=== PATIENT | male | born 1955 | race Caucasian/White ===

== ENCOUNTER → 2018-02-27 | Outpatient (REF) ==
[~2018-02-27] MED LIST: AMITRIPTYLINE25 MG PO; NEXIUM 40MG40 MG PO; PHENERGAN 25 TA25 MG PO; PREVACID30 M1 PO; PROPRANOLOL HC120 M1 PO
[2018-02-27 17:44] LABS: THYROID STIMULATING HORMONE 0.863 uIU/mL (0.465-4.680)
== END ==
LOC: ZLAB.WCH 16:50
PROVIDERS: Physician Assistant
DX: Z01.89 Encounter for other specified special examinations (principal)

== ENCOUNTER 2018-03-02 13:24 | Day surgery (SDC) | payer OTHER ==
[2009-03-14 15:09] VITALS: BP 94/56
[~2018-03-02] VITALS: Ht 172.7 cm; Wt 79.5 kg
[2018-03-02 13:48] VITALS: BP 156/97; PULSE 114; TEMP 98
[2018-03-02] MEDS ORDERED: NEURONTIN300 MG/CAP PO (13:50)
[2018-03-02] MEDS ORDERED: NEXIUM 40MG40 MG PO (13:51)
[2018-03-02] MEDS ORDERED: INDERAL LA120 MG PO (13:51)
[2018-03-02] MEDS ORDERED: AMITRIPTYLINE H25 M1 PO (13:52)
[2018-03-02] MEDS ORDERED: NORCO 325 MG-51 TAB PO (13:52)
[2018-03-02] MEDS ORDERED: HCTZ 25MG TAB25 MG PO (13:53)
[2018-03-02] MEDS ORDERED: LEVAQUIN 5500 MG/TA1 PO (13:54)
[2018-03-02] MEDS ORDERED: PHENERGAN 25 TA25 MG PO (13:55)
[2018-03-02] MEDS ORDERED: FLOMAX 0.40.4 MG/CAP PO (13:55)
[2018-03-02 15:20] VITALS: BP 128/83; PULSE 71; TEMP 98.2
[2018-03-02 15:35] VITALS: BP 133/75; PULSE 76
[2018-03-02 15:50] VITALS: BP 121/80; PULSE 73
[2018-03-02 16:05] VITALS: BP 108/69; PULSE 73
== END 2018-03-02 16:15 | disposition home or self-care (01) ==
LOC: SDCO 13:24
DX: D12.2 Benign neoplasm of ascending colon (principal); D50.9 Iron deficiency anemia, unspecified; K59.00 Constipation, unspecified; R19.7 Diarrhea, unspecified; K21.9 Gastro-esophageal reflux disease without esophagitis; G43.909 Migraine, unspecified, not intractable, without status migrainosus; R25.1 Tremor, unspecified; Z86.010 Personal history of colon polyps
CPT/HCPCS: J2405; J2704; J7030

== ENCOUNTER 2019-02-22 07:51 | Day surgery (SDC) | payer OTHER ==
[2009-03-14 15:09] VITALS: BP 94/56
[~2019-02-22] VITALS: Ht 172.7 cm; Wt 80.9 kg
[~2019-02-22 07:51] MED LIST changes: +AMITRIPTYLINE H25 M1 PO; +FLOMAX 0.40.4 MG/CAP PO; +HCTZ 25MG TAB25 MG PO; +INDERAL LA120 MG PO; +LEVAQUIN 5500 MG/TA1 PO; +NEURONTIN300 MG/CAP PO; +NORCO 325 MG-51 TAB PO
[2019-02-22 08:36] VITALS: BP 142/87; PULSE 79; TEMP 98.7
[2019-02-22] MEDS ORDERED: MOTRIN 200200 MG/TAB PO (08:42)
[2019-02-22 09:30] VITALS: BP 120/76; PULSE 67; TEMP 97
--- NOTE | 2019-02-22 09:30 | NUR ---
Pt to GI bay 6 via cart from [employer]. Pt drowsy, but awakens easily to verbal stimuli. Pt ambulates to recliner with stand by assistance. in room. Pt wanting to rest. Denies pain or nausea. Call light within reach. Warm blanket placed.
[2019-02-22 09:45] VITALS: BP 116/79; PULSE 56
--- NOTE | 2019-02-22 09:45 | NUR ---
Pt sleeping. Respirations even and unlabored. Call light within reach.
[2019-02-22 10:00] VITALS: BP 109/70; PULSE 64
--- NOTE | 2019-02-22 10:00 | NUR ---
Pt continues to sleep. Respirations even and unlabored. Call light within reach.
--- NOTE | 2019-02-22 10:15 | NUR ---
Discharge instructions reviewed. Pt voices understanding. IV site discontinued with all parts intact. Pt up to dress. Call light within reach.
--- NOTE | 2019-02-22 10:28 | NUR ---
Pt escorted to private car via wheel chair. Pt accompanied home by his .
== END 2019-02-22 10:29 | disposition home or self-care (01) ==
LOC: SDCO 07:51
DX: Z12.11 Encounter for screening for malignant neoplasm of colon (principal); D50.9 Iron deficiency anemia, unspecified; K59.00 Constipation, unspecified; K21.9 Gastro-esophageal reflux disease without esophagitis; R19.7 Diarrhea, unspecified; K22.70 Barrett's esophagus without dysplasia; K22.2 Esophageal obstruction; Z86.010 Personal history of colon polyps
CPT/HCPCS: J2704; J7120

== ENCOUNTER 2019-02-25 09:43 | Emergency (ER) | payer OTHER ==
[2009-03-14 15:09] VITALS: BP 94/56
[~2019-02-25] VITALS: Ht 172.7 cm; Wt 81.8 kg
[~2019-02-25 09:43] MED LIST changes: +MOTRIN 200200 MG/TAB PO
[2019-02-25 09:49] VITALS: TEMP 98.7
[2019-02-25 10:20] LABS: BASO # 0.1 (0.0-0.2); BASO % 0.8 % (0.0-2.0); EOS # 0.1 (0.0-0.7); EOS % 1.9 % (0-4.0); GRAN % 77.1 % (42.2-75.2); HEMATOCRIT 41.6 % (42.0-52.0); HEMOGLOBIN 13.7 g/dl (13.5-18.0); LYMPH # 0.7 (1.2-3.4); LYMPH % 10.1 % (20.0-51.0); MEAN CELL VOLUME 88 fl (80.0-100.0); MEAN CORPUSCULAR HEMOGLOBIN 29 pg (27.0-31.0); MEAN CORPUSCULAR HGB CONC 33 g/dl (33.0-37.0); MEAN PLATELET VOLUME 9.5 fl (7.4-10.4); MONO # 0.6 (0.1-0.6); MONO % 9.6 % (1.7-9.3); PLATELET COUNT 245 K/mm3 (130-400); RED BLOOD COUNT 4.75 M/mm3 (4.20-5.60); REDCELL DISTRIBUTION WIDTH-CV 12.8 % (11.5-14.5)
[2019-02-25 10:32] LABS: ALANINE AMINOTRANSFERASE 25 U/L (21-72); ALBUMIN 4.1 gm/dL (3.5-5.0); ALKALINE PHOSPHATASE 75 U/L (50-136); ANION GAP 6 mmol/L (7-16); AST,SGOT 27 U/L (15-37); BILIRUBIN,TOTAL 0.3 mg/dL (0.0-1.0); BLOOD UREA NITROGEN 19 mg/dL (9-20); CALCIUM 9.2 mg/dL (8.4-10.2); CARBON DIOXIDE 29 mmol/L (22-30); CHLORIDE 106 mmol/L (98-107); CREATININE, serum 1.12 (0.66-1.25); GLUCOSE 101 mg/dL (74-106); LIPASE 29 U/L (23-300); POTASSIUM 4.2 mmol/L (3.4-5.0); SODIUM 140 mmol/L (137-145); TOTAL PROTEIN 6.7 gm/dL (6.4-8.2)
[2019-02-25 10:34] LABS: C-REACTIVE PROTEIN < 0.5 mg/dL (0.0-0.9)
[2019-02-25 10:56] LABS: COLLECTION METHOD CLEAN CATCH
[2019-02-25 11:12] LABS: PH 6 (5-8); SQUAMOUS EPITHELIAL None Seen /hpf; URINE APPEARANCE Clear; URINE BACTERIA None Seen /hpf; URINE BILIRUBIN Negative (NEGATIVE); URINE BLOOD 2+ (NEGATIVE); URINE COLOR Yellow; URINE GLUCOSE Negative (NEGATIVE); URINE KETONE Negative (NEGATIVE); URINE LEUKOCYTE ESTERASE Negative (NEGATIVE); URINE NITRATE Negative (NEGATIVE); URINE PROTEIN(semi-quant) Negative (NEGATIVE); URINE RBC >50 /hpf
[2019-02-25 11:14] LABS: MUCOUS Present /lpf
[2019-02-25] MEDS ORDERED: NORCO 325 MG-51 TAB PO (12:24)
[2019-02-25 13:12] VITALS: BP 140/78; PULSE 74
== END 2019-02-25 13:13 | disposition home or self-care (01) ==
LOC: COL.ER 09:43
PROVIDERS: Family Medicine
DX: N20.2 Calculus of kidney with calculus of ureter (principal)
CPT/HCPCS: J2270; J2405; J7030; Q9967

== ENCOUNTER 2021-11-20 15:17 | Inpatient (IN) | payer MEDICARE, OTHER ==
--- NOTE | 2021-11-20 15:30 | NUR ---
Patient to room 349 from [place] [facility]. Patient and ambulated independently to the room. A&Ox3. VSS. IV CDI. Reports pain in abdomen. Nurse oriented to location, room and call light. Call light within reach
[2021-11-20 16:00] VITALS: BP 163/73; PULSE 63; TEMP 98
[2021-11-20] MEDS ORDERED: FLEXERIL 1010 MG/TAB PO (16:20)
[2021-11-20] MEDS ORDERED: BACTRIM DS 8001 TAB PO (16:25)
[2021-11-20] MEDS ORDERED: ALLEGRA 60MG TA60 MG PO (16:26)
[2021-11-20] MEDS ORDERED: FORTESTA10 MG/0.5 TP (16:27)
[2021-11-20] MEDS ORDERED: VIAGRA100 M1 (16:27)
[2021-11-20] MEDS ORDERED: CLOBEX TOP (16:29)
--- NOTE | 2021-11-20 16:30 | NUR ---
Patient taken to the OR at the bedside
[2021-11-20] MEDS ORDERED: FLOMAX 0.40.4 MG/CAP PO (17:27)
[2021-11-20 17:45] VITALS: BP 148/73; PULSE 56; TEMP 97.7
--- NOTE | 2021-11-20 17:45 | NUR ---
Patient to room 349 from the PACU. A&Ox3. VSS. IV CDI, by gravity. at the bedside. Denies pain and discomfort. Silva intact, abel urine. Call light within reach.
[2021-11-20 17:53] VITALS: BP 127/71; PULSE 60; TEMP 97.7
[2021-11-20 19:00] VITALS: BP 123/70; PULSE 103; TEMP 97.7
[2021-11-20 20:13] VITALS: BP 123/70; PULSE 64; TEMP 97.7
--- NOTE | 2021-11-20 21:50 | NUR ---
ALERT ANDOX4. DENIES SOA, CHEST PAIN OR DIZZY. FEELS CRAMPING, TYL GIVEN. LEAKING SOME LOOSE STOOL. IV FLUIDS RUNNING. POC DISCUSSED; CALL LIGHT WI REACH.
[2021-11-21 00:26] VITALS: BP 115/49; BP 116/66; PULSE 72; TEMP 98.3
[2021-11-21 04:37] VITALS: BP 99/49; PULSE 67; TEMP 98.4
[2021-11-21 07:43] VITALS: BP 101/62; PULSE 64; TEMP 98.1
--- NOTE | 2021-11-21 08:00 | NUR ---
Patient laying in bed, at the bedside. A&Ox4. VSS. IV CDI. Silva intact. Denies pain and discomfort. Call light within reach
--- NOTE | 2021-11-21 11:08 | NUR ---
Dowel Inserting Machine Operator met with patient Feliciano for intake assessment/discharge planning: Patient is alert and oriented, and he is willing to speak. He states he lives on the [place] of his home with his spouse Rasheeda . There are stairs to the basement, and he indicates no difficulty navigating the stairs. He states he is independent in his ADLs/IADLs, and he utilizes no medical equipment at home. He feels his home is accessible for him. He sees MICHAEL Dean, in [place] for primary care, and he obtains his medications from [facility] or [facility]; patient indicates no difficulties obtaining his medications. He states he does have DPOA-HC paperwork completed indicating his spouse as his DPOA-HC and he will see if she can bring up the paperwork to be scanned into EMR. Patient expresses no other questions/concerns, and he plans to return to home at discharge. He notes he will likely be here tomorrow. *Discharge plan: home with spouse*
[2021-11-21 12:00] VITALS: BP 112/53; PULSE 65; TEMP 98.2
[2021-11-21 16:00] VITALS: BP 106/60; PULSE 75; TEMP 98
--- NOTE | 2021-11-21 18:13 | NUR ---
Patient resting in bed, at the bedside. A&Ox4. VSS. IV CDI. Denies pain and discomfort. Silva intact. Call light within reach
--- NOTE | 2021-11-21 20:00 | NUR ---
PATIENT IS A&O. VSS. DENIES C/O PAIN OR NAUSEA. ABD IS SOFT AND WITH POSITIVE BOWL SOUNDS. PASSING GAS. TOLERATING LOW FIBER DIET. RAYGOZA TO DD WITH MOD AMOUNTS OF CLEAR YELLOW URINE NOTED. RIGHT AC IV TO INT. HEAD TO TOE ASSESSMENT COMPLETED, SEE CHARTING. AT BEDSIDE. SCD'S CURRENTLY OFF. INDEPENDENT IN ROOM. NO OTHER NEEDS AT THIS TIME. CALL LIGHT IN REACH.
[2021-11-21 20:40] VITALS: BP 106/41; PULSE 52; TEMP 97.9
[2021-11-22 00:30] VITALS: BP 107/63; PULSE 68; TEMP 97.7
[2021-11-22 04:17] VITALS: BP 119/63; PULSE 69; TEMP 97.6
[2021-11-22 07:42] VITALS: BP 123/72; PULSE 68; TEMP 98.3
--- NOTE | 2021-11-22 07:47 | NUR ---
Patient sleeping, easily awakened with verbal command. VSS. IV CDI. Denies pain and discomfort. Silva intact. Call light within reach
[2021-11-22 12:11] VITALS: BP 125/60; PULSE 81; TEMP 97.9
[2021-11-22 16:40] VITALS: BP 134/77; PULSE 85; TEMP 98.4
--- NOTE | 2021-11-22 17:45 | NUR ---
Patient had an uneventful day. A&Ox4. VSS. IV CDI. Denies pain and discomfort. Silva intact. Bowel prep started. NPO after midnight for a procedure. Call light within reach
[2021-11-22 19:37] VITALS: BP 123/62; PULSE 81; TEMP 98
[2021-11-23] VITALS (10 sets, daily range): BP systolic 113–130; BP diastolic 55–78; PULSE 67–86; TEMP 97.5–98.9
[2021-11-23 06:51] LABS: CALCIUM 8.6 mg/dL (8.4-10.2); CREATININE, serum 0.99 mg/dL (0.72-1.25); POTASSIUM 3.9 mmol/L (3.5-4.5)
--- NOTE | 2021-11-23 08:00 | NUR ---
PT A&OX3 RESTING IN BED. AM MED GIVEN AND ASSESSMENT COMPLETED. PT REFUSED AM GABAPENTIN AND AMITRIPTYLINE DUE TO FEELING DROWSY PT REPORTS. NEW IV TO RT AC STARTED BY RN. PT DENIES PN. LR INFUSING AT 75ML/HR. RAYGOZA IN PLACE. BOWEL PREP CONTINUED FOR SX TODAY. NO OTHER NEEDS AT THIS TIME. CALL LIGHT WITHIN REACH.
--- NOTE | 2021-11-23 11:00 | NUR ---
PT RESTING IN BED WITH AT BEDSIDE WAITING FOR SURGERY. NO OTHER NEEDS AT THIS TIME. CALL LIGHT WITHIN REACH.
--- NOTE | 2021-11-23 14:50 | NUR ---
PT TO SURGERY Juan M BRENNAN.
--- NOTE | 2021-11-23 19:25 | NUR ---
Pt. to the floor from PACU. Pt. is A&OX3 and drowsey at this time. 5 abd laps and 1 low transverse incision noted with glue, cdi. Pt. denies pain. Vital signs stable. Pt. denies further needs, call light within reach.
[2021-11-23 20:13] LABS: CALCIUM 8.5 mg/dL (8.4-10.2); CREATININE, serum 0.97 mg/dL (0.72-1.25); POTASSIUM 4.3 mmol/L (3.5-4.5)
[2021-11-24 04:23] VITALS: BP 109/51; PULSE 75; TEMP 98.5
[2021-11-24 06:12] LABS: HEMATOCRIT 41.1 % (42.0-52.0); HEMOGLOBIN 13.8 g/dl (13.5-18.0)
[2021-11-24 06:46] LABS: CALCIUM 8.6 mg/dL (8.4-10.2); CREATININE, serum 0.87 mg/dL (0.72-1.25); MAGNESIUM 1.7 mg/dL (1.6-2.6); PHOSPHOROUS 3.6 mg/dL (2.3-4.7); POTASSIUM 4.7 mmol/L (3.5-4.5)
[2021-11-24 07:30] VITALS: BP 114/63; PULSE 65; TEMP 97.5
--- NOTE | 2021-11-24 10:00 | NUR ---
RAYGOZA DISCONTINUED. PATIENT WITH NO COMPLAINTS
--- NOTE | 2021-11-24 10:19 | NUR ---
Initial visit; Patient thanked Marketing Finance Specialist for looking in on him and offering God's blessings.
[2021-11-24 12:03] VITALS: BP 115/66; PULSE 76; TEMP 98.4
[2021-11-24 16:07] VITALS: BP 127/72; PULSE 66; TEMP 98.1
[2021-11-24 19:27] VITALS: BP 105/45; PULSE 86; TEMP 98
--- NOTE | 2021-11-24 20:00 | NUR ---
Pt. sitting up in bed. Pt. is A&OX3, assessment complete. INT to lt. ac patent. Abd. incisions well approximated. Pt. reports pain at a 6 on pain scale, will give pain meds per orders. Pt. denies further needs, call light within reach.
[2021-11-24 23:50] VITALS: BP 115/42; PULSE 75; TEMP 97.9
[2021-11-25 04:23] VITALS: BP 107/54; PULSE 76; TEMP 97.9
[2021-11-25 07:40] VITALS: BP 109/58; PULSE 61; TEMP 97.8
[2021-11-25 11:43] VITALS: BP 108/53; PULSE 65; TEMP 98.4
[2021-11-25] MEDS ORDERED: INDERAL LA 60MG60 MG PO (12:05)
[2021-11-25] MEDS ORDERED: NORCO 325 MG-51 TAB PO (12:06)
--- NOTE | 2021-11-25 12:41 | NUR ---
PT DISCHARGED HOME WITH ALL HIS BELONGINGS, PT LEFT BY PRIVATE VEHICLE WITH , DISCHARGE PACKET WAS DISCUSSED WITH PT AND , ALL QUESTIONS AND CONCERNS WERE ADDRESSED, FOLLOW UP APPT MADE WITH DR. DAIGLE
== END 2021-11-25 13:04 | disposition home or self-care (01) | DRG 331 ==
LOC: SURG 15:17
PROVIDERS: ADMIT Surgery
PROC: 0T9B80Z Drainage of Bladder with Drainage Device, Via Natural or Artificial Opening Endoscopic (ICD-10-PCS; 2021-11-20)
PROC: 0DJD8ZZ Inspection of Lower Intestinal Tract, Via Natural or Artificial Opening Endoscopic (ICD-10-PCS; 2021-11-20)
PROC: 8E0W4CZ Robotic Assisted Procedure of Trunk Region, Percutaneous Endoscopic Approach (ICD-10-PCS; 2021-11-23)
PROC: 0DTN4ZZ Resection of Sigmoid Colon, Percutaneous Endoscopic Approach (ICD-10-PCS; principal; 2021-11-23 15:15)
DX: K56.2 Volvulus (principal); K56.609 Unspecified intestinal obstruction, unspecified as to partial versus complete obstruction; I10 Essential (primary) hypertension; G47.33 Obstructive sleep apnea (adult) (pediatric); K21.9 Gastro-esophageal reflux disease without esophagitis; G89.29 Other chronic pain; G43.909 Migraine, unspecified, not intractable, without status migrainosus; R42 Dizziness and giddiness; M48.061 Spinal stenosis, lumbar region without neurogenic claudication; K44.9 Diaphragmatic hernia without obstruction or gangrene; T44.7X5A Adverse effect of beta-adrenoreceptor antagonists, initial encounter; I49.3 Ventricular premature depolarization; I49.1 Atrial premature depolarization; R33.9 Retention of urine, unspecified; Z72.89 Other problems related to lifestyle; Z90.89 Acquired absence of other organs; Z87.442 Personal history of urinary calculi; Y92.89 Other specified places as the place of occurrence of the external cause
CPT/HCPCS: A9284; C1769; J0690; J1100; J1170; J1650; J2250; J2270; J2405; J2550; J2704; J3010; J3475; J7120